=== PATIENT | male | born 1945 | race Caucasian/White ===

== ENCOUNTER 2017-10-27 10:19 | Emergency (ER) | payer MEDICARE, BC ==
[2017-10-27 11:01] VITALS: BP 123/83
--- NOTE | 2017-10-27 11:30 | UC ---
Respiratory Complaint HPI - HPI Summary HPI Summary: C/O URI symptoms x 4 days with congestion and cough worse at night. - History of Current Complaint Chief Complaint: UCRespiratory Stated Complaint: CONGESTION COUGH RUNNY NOSE Time Seen by Provider: 10/27/17 11:18 Hx Obtained From: Patient Onset/Duration: Sudden Onset, Lasting Days - 4, Worse Since - last night Severity Initially: Mild Severity Currently: Moderate Pain Intensity: 0 Character: Cough: Nonproductive Aggravating Factors: Allergens Alleviating Factors: Nothing Associated Signs And Symptoms: Positive: Wheezing, URI, Nasal Congestion, Sinus Discomfort Related History: Seasonal Allergies - Allergies/Home Medications Allergies/Adverse Reactions: Allergies Allergy/AdvReac Type Severity Reaction Status Date / Time lisinopril Allergy Coughing Verified 10/27/17 10:51 rivaroxaban [From Xarelto] Allergy Itching Verified 10/27/17 10:51 seasonal allergy Allergy Runny Nose Uncoded 10/27/17 10:51 Home Medications: Home Medications Beta Yousuf 1 tab PO DAILY 10/27/17 [History] Isosorbide Mononitrate [Isosorbide Mononitrate ER] 30 mg PO DAILY 10/27/17 [ History Confirmed 10/27/17] PMH/Surg Hx/FS Hx/Imm Hx Endocrine History: Thyroid Disease Cardiovascular History: Cardiac Disease, Hypertension Cancer History: Prostate Cancer - Surgical History Surgical History: Yes Surgery Procedure, Year, and Place: Right shoulder surg 1965, appy 1967, prostectomy 2003, cardiac ablations 2008 and Feb 2012, 12/2015. Cardiac pace maker 2001. Left HIP REPLACEMENT APR 2013 - Family History Known Family History: Positive: Hypertension - Social History Alcohol Use: Rare Substance Use Type: None Smoking Status (MU): Never Smoked Tobacco Review of Systems ENT: Sore Throat, Sinus Pain/Tenderness Respiratory: Shortness Of Breath, Cough Cardiovascular: Chest Pain - just with coughing Is Patient Immunocompromised?: No All Other Systems Reviewed And Are Negative: Yes Physical Exam Triage Information Reviewed: Yes Appearance: No Pain Distress, Well-Nourished, Ill-Appearing Vital Signs: Initial Vital Signs Temp 98 F 10/27/17 10:56 Pulse 63 10/27/17 10:56 Resp 20 10/27/17 10:56 BP 123/83 10/27/17 10:56 Pulse Ox 98 10/27/17 10:56 Vital Signs Reviewed: Yes Eyes: Positive: Conjunctiva Clear ENT: Positive: Pharynx normal, Nasal congestion, TMs normal Neck exam: Normal Respiratory: Positive: Wheezing - expiratory wheeze with coughing Cardiovascular: Positive: No Murmur Musculoskeletal Exam: Normal Neurological Exam: Normal Psychological Exam: Normal Skin Exam: Normal UC Diagnostic Evaluation - Laboratory O2 Sat by Pulse Oximetry: 98 Respiratory Course/Dx - Differential Dx/Diagnosis Differential Diagnosis/HQI/PQRI: Asthma, Lower Resp Infection, Sinusitis Provider Diagnoses: Acute URI. Acute sinusitis. Acute bronchospasm Discharge - Sign-Out/Discharge Documenting (check all that apply): Discharge/Admit/Transfer - Discharge Plan Condition: Stable Disposition: HOME Prescriptions: Amoxicillin PO (*) [Amoxicillin 875 MG (*)] 875 mg PO BID #20 tab predniSONE [Prednisone 20 MG TAB] 20 mg PO DAILY #18 tablet Patient Education Materials: Upper Respiratory Infection (DC), Wheezing (ED), Prednisone (By mouth), Sinusitis (ED), Amoxicillin (By mouth) Referrals: Randal Edmonds MD [Primary Care Provider] - Additional Instructions: NEILMED SINUS RINSE: CHECK OUT AT [facility] Saline nasal wash helps with mucous, allergies and congestion. It can be used up to twice a day or only as needed. Use lukewarm tap water. It does not have to be sterilized or distilled water. Do 1/3 on each side and snort out of both nostrils. Repeat the process with 1/6 of the bottle on each side with snorting in between to finish the solution in the bottle - Billing Disposition and Condition Condition: STABLE Disposition: HOME
== END 2017-10-27 11:48 | disposition home or self-care (01) ==
LOC: UCCORT 10:19
DX: J06.9 Acute upper respiratory infection, unspecified (principal); J01.90 Acute sinusitis, unspecified; J98.01 Acute bronchospasm; E07.9 Disorder of thyroid, unspecified; I10 Essential (primary) hypertension; Z85.46 Personal history of malignant neoplasm of prostate; Z90.79 Acquired absence of other genital organ(s); Z95.0 Presence of cardiac pacemaker; Z96.642 Presence of left artificial hip joint; Z82.49 Family history of ischemic heart disease and other diseases of the circulatory system
CPT/HCPCS: 99212; G0463